=== PATIENT | male | born 1955 | race African-American/Black ===

== ENCOUNTER 2019-05-13 12:21 | Emergency (ER) | payer MEDICARE, MEDICAID ==
[~2019-05-13] VITALS: Ht 170.2 cm; Wt 85.0 kg
[~2019-05-13 12:21] MED LIST: No home medications
[2019-05-13] MEDS ORDERED: LEVETIRACETAM 1000MG/100ML 100 ML IV ONE (12:30)
[2019-05-13 12:52] LABS: CHLORIDE 105 mEq/L (98-107)
[2019-05-13 12:54] LABS: HEMATOCRIT. 39.6 % (42.0-52.0); HEMOGLOBIN. 12.5 g/dL (14.0-18.0); MEAN CORPUSCULAR HEMOGLOBIN 30.2 pg (28.0-32.0); MEAN CORPUSCULAR VOLUME 95.9 fL (80.0-94.0); MEAN PLATELET VOLUME 10.5 fl (7.4-10.4); PLATELET 202 x1000/uL (130-400); RED BLOOD CELL COUNT 4.12 mill/uL (4.7-6.1); RED CELL DISTRIBUTION WIDTH 14.8 % (11.6-14.6)
[2019-05-13 12:56] LABS: ETHANOL BLOOD < 10 mg/dL
[2019-05-13 14:09] LABS: PLATELET ESTIMATE NORMAL
[2019-05-13 14:50] VITALS: BP 111/61
== END 2019-05-13 14:59 | disposition home or self-care (01) ==
LOC: ER 12:21
DX: G40.909 Epilepsy, unspecified, not intractable, without status epilepticus (principal); R41.82 Altered mental status, unspecified; J44.9 Chronic obstructive pulmonary disease, unspecified; I10 Essential (primary) hypertension; F10.20 Alcohol dependence, uncomplicated; F12.10 Cannabis abuse, uncomplicated; F14.10 Cocaine abuse, uncomplicated; Y90.9 Presence of alcohol in blood, level not specified
CPT/HCPCS: 36415; 80053; 80320; 85025; 96365; 99283; J1953; G0480

== ENCOUNTER 2019-06-09 04:42 | Inpatient (IN) | payer MEDICARE, MEDICAID ==
[~2019-06-09] VITALS: Ht 177.8 cm; Wt 73.9 kg
[2019-06-09] MEDS ORDERED: ALBUTEROL (0.083%) 2.5MG/3ML NEB HHN STA (05:18)
[2019-06-09] MEDS ORDERED: METHYLPREDNISOLONE SOD SUCC 125 MG/2 ML VIAL IV STA (05:18)
[2019-06-09] MEDS ORDERED: IPRATROPIUM BROMIDE (0.02%) 0.5MG/2.5ML NEB HHN STA (05:18)
[2019-06-09 05:23] LABS: BASOPHILS % 0.4 % (0.0-2.0); EOSINOPHILS % 0.3 % (0.0-5.0); HEMATOCRIT. 32.7 % (42.0-52.0); HEMOGLOBIN. 10.8 g/dL (14.0-18.0); LYMPHOCYTES % 12.8 % (20.0-50.0); MEAN CORPUSCULAR HEMOGLOBIN 31.2 pg (28.0-32.0); MEAN CORPUSCULAR VOLUME 94.5 fL (80.0-94.0); MEAN PLATELET VOLUME 9.7 fl (7.4-10.4); MONOCYTES % 12.5 % (2.0-8.0); PLATELET 157 x1000/uL (130-400); RED BLOOD CELL COUNT 3.46 mill/uL (4.7-6.1); RED CELL DISTRIBUTION WIDTH 14.3 % (11.6-14.6)
[2019-06-09 05:37] LABS: CHLORIDE 111 mEq/L (98-107)
[2019-06-09] MEDS ORDERED: ASPIRIN 81MG TABLET PO ONE (06:15)
[2019-06-09] MEDS ORDERED: FUROSEMIDE 40MG/4ML VIAL IVP ONE (06:15)
[2019-06-09 08:00] VITALS: BP 141/81
[2019-06-09 08:25] VITALS: BP 141/81
[2019-06-09] MEDS ORDERED: ONDANSETRON HCL 4MG/2ML INJ IV PRN (08:45)
[2019-06-09] MEDS ORDERED: NA PHOS,M-B/NA PHOS,DI-BA ENEMA 118ML PR PRN (08:45)
[2019-06-09] MEDS ORDERED: CLONIDINE 0.1MG TABLET PO PRN (08:45)
[2019-06-09] MEDS ORDERED: ACETAMINOPHEN 325MG TABLET PO PRN (08:45)
[2019-06-09] MEDS ORDERED: IPRATROPIUM/ALBUTEROL 0.5-3(2.5)MG/3ML NEB INH PRN (08:45)
[2019-06-09] MEDS ORDERED: ACETAMINOPHEN 650MG SUPP PR PRN (08:45)
[2019-06-09] MEDS ORDERED: MAGNESIUM/ALUMINUM HYDROXIDE/SIMETHICONE 30ML UDC PO PRN (08:45)
[2019-06-09] MEDS ORDERED: DOCUSATE SODIUM 100MG CAPSULE PO PRN (08:45)
[2019-06-09] MEDS ORDERED: ACETAMINOPHEN 650MG/20.3ML UDC GT PRN (08:45)
[2019-06-09] MEDS: HYDROCODONE/ACETAMINOPHEN 5/325MG TABLET PO PRN ×2 (09:58→17:30)
[2019-06-09] MEDS: ENOXAPARIN 40MG/0.4ML SYR SUBCUT SCH (09:58)
[2019-06-09] MEDS: DIPHENHYDRAMINE 50MG/ML VIAL IV PRN ×2 (10:41→21:49)
[2019-06-09 12:00] VITALS: BP 113/80
[2019-06-09 12:03] LABS: CLARITY URINE CLEAR (CLEAR); COLOR URINE YELLOW (YELLOW); KETONES URINE NEGATIVE (NEGATIVE); LEUKOCYTE ESTERASE URINE NEGATIVE (NEGATIVE); NITRITE URINE NEGATIVE (NEGATIVE); OCCULT BLOOD URINE NEGATIVE (NEGATIVE); PH URINE 5.5 (4.5-8.0); PROTEIN URINE 2+ (NEGATIVE); SPECIFIC GRAVITY URINE 1.008 (1.005-1.030); UROBILINOGEN URINE 0.2 E.U./dL (0.2-1.0)
[2019-06-09 12:26] LABS: *AMPHETAMINES SCREEN URINE NEGATIVE (NEGATIVE); *BARBITURATES SCREEN URINE NEGATIVE (NEGATIVE); *BENZODIAZEPINES SCREEN URINE NEGATIVE (NEGATIVE); *COCAINE SCREEN URINE PRESUMTIVE POSITIVE (NEGATIVE); METHADONE URINE SCREEN NEGATIVE (NEGATIVE)
[2019-06-09 12:27] LABS: CANNABINOID URINE SCREEN NEGATIVE (NEGATIVE); OPIATES URINE SCREEN NEGATIVE (NEGATIVE); PHENCYCLIDINE URINE SCREEN NEGATIVE (NEGATIVE)
[2019-06-09] MEDS ORDERED: QUET50TA21 PO (14:00)
[2019-06-09] MEDS ORDERED: PRED-276 PO (14:02)
[2019-06-09] MEDS ORDERED: ALBU4TAB6 MT (14:06)
[2019-06-09] MEDS ORDERED: ALBU18HF2 IH (14:06)
[2019-06-09] MEDS ORDERED: BUDE6HFA INH (14:06)
[2019-06-09] MEDS: SODIUM CHLORIDE 0.9% INJ 3ML FLUSH IVF SCH ×2 (14:25→21:48)
[2019-06-09 16:00] VITALS: BP 164/86
[2019-06-09 16:37] LABS: CREATINE KINASE MB FRACTION 5.7 ng/mL (0.5-3.6)
[2019-06-09] MEDS: FUROSEMIDE 40MG/4ML VIAL IV SCH (17:30)
[2019-06-09] MEDS: NICOTINE 14MG PATCH TD SCH (17:31)
[2019-06-09 20:00] VITALS: BP 131/74
[2019-06-10] VITALS: BP 147/81
[2019-06-10 04:00] VITALS: BP 135/93
[2019-06-10] MEDS: FUROSEMIDE 40MG/4ML VIAL IV SCH ×2 (05:13→16:08)
[2019-06-10] MEDS: SODIUM CHLORIDE 0.9% INJ 3ML FLUSH IVF SCH ×3 (05:13→21:02)
[2019-06-10 06:10] LABS: BASOPHILS % 0.3 % (0.0-2.0); HEMATOCRIT. 30.7 % (42.0-52.0); LYMPHOCYTES % 8.5 % (20.0-50.0); MEAN CORPUSCULAR HEMOGLOBIN 30.6 pg (28.0-32.0); MEAN PLATELET VOLUME 10.6 fl (7.4-10.4); MONOCYTES % 11.4 % (2.0-8.0); NEUTROPHILS % 79.8 % (40.0-76.0); PLATELET 147 x1000/uL (130-400); RED BLOOD CELL COUNT 3.26 mill/uL (4.7-6.1); RED CELL DISTRIBUTION WIDTH 13.7 % (11.6-14.6)
[2019-06-10 06:23] LABS: CHLORIDE 106 mEq/L (98-107)
[2019-06-10 06:34] LABS: HDL CHOLESTEROL 85 mg/dL (40-59); LDL CHOLESTEROL 54 mg/dL (5-100)
[2019-06-10 08:00] VITALS: BP 142/80
[2019-06-10] MEDS: HYDROCODONE/ACETAMINOPHEN 5/325MG TABLET PO PRN ×3 (08:03→21:08)
[2019-06-10] MEDS: NICOTINE 14MG PATCH TD SCH (08:04)
[2019-06-10] MEDS: ENOXAPARIN 40MG/0.4ML SYR SUBCUT SCH (08:04)
[2019-06-10 12:00] VITALS: BP 120/71
[2019-06-10 16:00] VITALS: BP 135/85
[2019-06-10 20:00] VITALS: BP 114/67
[2019-06-10] MEDS: DIPHENHYDRAMINE 50MG/ML VIAL IV PRN (22:25)
[2019-06-11] VITALS: BP 123/74
[2019-06-11] MEDS: ALBUTEROL (0.083%) 2.5MG/3ML NEB HHN SCH ×3 (00:48→14:32)
[2019-06-11 04:26] VITALS: BP 124/75
[2019-06-11] MEDS: SODIUM CHLORIDE 0.9% INJ 3ML FLUSH IVF SCH (05:11)
[2019-06-11] MEDS: HYDROCODONE/ACETAMINOPHEN 5/325MG TABLET PO PRN ×3 (05:52→14:53)
[2019-06-11] MEDS: FUROSEMIDE 40MG/4ML VIAL IV SCH (07:06)
[2019-06-11] MEDS ORDERED: FURO-151 MT (07:07)
[2019-06-11] MEDS: NICOTINE 14MG PATCH TD SCH (10:16)
[2019-06-11] MEDS: ENOXAPARIN 40MG/0.4ML SYR SUBCUT SCH (10:17)
[2019-06-11 15:10] VITALS: BP 126/67
== END 2019-06-11 17:44 | disposition home or self-care (01) | DRG 292 ==
LOC: ER 04:42 → 6WST 06:02 → ENRESERV 07:41
PROVIDERS: ADMIT Family Medicine; ATTEND Family Medicine
DX: I11.0 Hypertensive heart disease with heart failure (principal); E44.0 Moderate protein-calorie malnutrition; J44.9 Chronic obstructive pulmonary disease, unspecified; G40.909 Epilepsy, unspecified, not intractable, without status epilepticus; F10.10 Alcohol abuse, uncomplicated; I50.23 Acute on chronic systolic (congestive) heart failure; F17.200 Nicotine dependence, unspecified, uncomplicated; F41.9 Anxiety disorder, unspecified; F32.9 Major depressive disorder, single episode, unspecified; F14.90 Cocaine use, unspecified, uncomplicated; I27.20 Pulmonary hypertension, unspecified; I42.9 Cardiomyopathy, unspecified; Z91.19 Patient's noncompliance with other medical treatment and regimen; Z68.23 Body mass index [BMI] 23.0-23.9, adult; Z79.899 Other long term (current) drug therapy
CPT/HCPCS: 36415; 71045; 80061; 80305; 81003; 82550; 82553; 83880; 84484; 93005; 93306; 94640; 97161; 97166; 99285; J1200; J1650; J1940; J2405; J2930; J7611

== ENCOUNTER 2019-08-10 02:59 | Inpatient (IN) | payer MEDICARE, MEDICAID ==
[~2019-08-10] VITALS: Ht 167.6 cm; Wt 94.3 kg
[~2019-08-10 02:59] MED LIST changes: +BUDE6HFA INH; +FURO-151 MT; -No home medications; +PRED-276 PO; +QUET50TA21 PO
[2019-08-10 05:56] LABS: BASOPHILS % 0.8 % (0.0-2.0); HEMATOCRIT. 40.1 % (42.0-52.0); HEMOGLOBIN. 12.6 g/dL (14.0-18.0); LYMPHOCYTES % 12.2 % (20.0-50.0); MEAN CORPUSCULAR HEMOGLOBIN 29.1 pg (28.0-32.0); MEAN CORPUSCULAR VOLUME 92.5 fL (80.0-94.0); MEAN PLATELET VOLUME 9.6 fl (7.4-10.4); MONOCYTES % 8.9 % (2.0-8.0); NEUTROPHILS % 78.1 % (40.0-76.0); PLATELET 227 x1000/uL (130-400); RED BLOOD CELL COUNT 4.33 mill/uL (4.7-6.1); RED CELL DISTRIBUTION WIDTH 15.1 % (11.6-14.6)
[2019-08-10 06:03] LABS: CHLORIDE 110 mEq/L (98-107)
[2019-08-10] MEDS ORDERED: MORPHINE SULFATE 4 MG/ML CPJ (NOT FOR IM USE) IV ONE (06:45)
[2019-08-10] MEDS ORDERED: FUROSEMIDE 40MG/4ML VIAL IVP ONE (06:45)
[2019-08-10 11:00] VITALS: BP 140/91
[2019-08-10 12:00] VITALS: BP 144/76
[2019-08-10 16:00] VITALS: BP 161/92
[2019-08-10] MEDS: MORPHINE SULFATE 2 MG/ML CPJ (NOT FOR IM USE) IV PRN ×2 (16:56→21:29)
[2019-08-10 20:00] VITALS: BP 150/65
[2019-08-10] MEDS ORDERED: CLONIDINE 0.1MG TABLET PO PRN (20:45)
[2019-08-10] MEDS ORDERED: ACETAMINOPHEN 325MG TABLET PO PRN (20:45)
[2019-08-10] MEDS ORDERED: GUAIFENESIN 200MG/10ML SUGAR FREE UDC PO PRN (20:45)
[2019-08-10] MEDS ORDERED: ONDANSETRON HCL 4MG/2ML INJ IV PRN (20:45)
[2019-08-10] MEDS ORDERED: MAGNESIUM/ALUMINUM HYDROXIDE/SIMETHICONE 30ML UDC PO PRN (20:45)
[2019-08-10] MEDS ORDERED: DIPHENHYDRAMINE 50MG/ML VIAL IV PRN (20:45)
[2019-08-10] MEDS ORDERED: LORAZEPAM 0.5MG TABLET PO PRN (20:45)
[2019-08-10] MEDS: FUROSEMIDE 40MG/4ML VIAL IVP SCH (21:28)
[2019-08-10] MEDS: SODIUM CHLORIDE 0.9% INJ 3ML FLUSH IVF SCH (22:00)
[2019-08-11] VITALS: BP 145/75
[2019-08-11 04:00] VITALS: BP 155/90
[2019-08-11] MEDS: MORPHINE SULFATE 2 MG/ML CPJ (NOT FOR IM USE) IV PRN ×2 (04:15→21:23)
[2019-08-11] MEDS: SODIUM CHLORIDE 0.9% INJ 3ML FLUSH IVF SCH ×3 (05:41→21:23)
[2019-08-11 06:58] LABS: CHLORIDE 105 mEq/L (98-107)
[2019-08-11 07:12] LABS: PHOSPHORUS 3.9 mg/dL (2.5-4.9)
[2019-08-11 07:51] VITALS: BP 134/76
[2019-08-11] MEDS: IPRATROPIUM/ALBUTEROL 0.5-3(2.5)MG/3ML NEB HHN PRN ×3 (08:25→20:24)
[2019-08-11] MEDS: BUDESONIDE 0.5MG/2ML NEB HHN SCH ×2 (08:26→20:23)
[2019-08-11] MEDS: QUETIAPINE FUMARATE 50MG TABLET PO SCH (09:38)
[2019-08-11] MEDS: FUROSEMIDE 40MG/4ML VIAL IVP SCH ×2 (09:38→21:23)
[2019-08-11 11:55] VITALS: BP 121/77
[2019-08-11] MEDS ORDERED: MAGNESIUM 4 G PREMIX 100 ML IV SCH (14:00)
[2019-08-11 16:00] VITALS: BP 135/76
[2019-08-11 20:00] VITALS: BP 106/70
[2019-08-12] VITALS: BP 138/68
[2019-08-12 04:00] VITALS: BP 130/77
[2019-08-12] MEDS: SODIUM CHLORIDE 0.9% INJ 3ML FLUSH IVF SCH ×3 (06:19→20:40)
[2019-08-12 07:07] LABS: CHLORIDE 105 mEq/L (98-107)
[2019-08-12 08:00] VITALS: BP 136/58
[2019-08-12] MEDS: QUETIAPINE FUMARATE 50MG TABLET PO SCH (08:44)
[2019-08-12] MEDS: FUROSEMIDE 40MG/4ML VIAL IVP SCH ×2 (08:44→20:39)
[2019-08-12] MEDS: MORPHINE SULFATE 2 MG/ML CPJ (NOT FOR IM USE) IV PRN ×3 (08:45→20:39)
[2019-08-12] MEDS: BUDESONIDE 0.5MG/2ML NEB HHN SCH ×2 (11:06→20:48)
[2019-08-12] MEDS: IPRATROPIUM/ALBUTEROL 0.5-3(2.5)MG/3ML NEB HHN SCH ×3 (11:07→20:48)
[2019-08-12 12:00] VITALS: BP 130/61
[2019-08-12 12:18] LABS: PROTHROMBIN TIME 10.3 sec (9.6-11.0)
[2019-08-12 13:58] LABS: *COCAINE SCREEN URINE PRESUMTIVE POSITIVE (NEGATIVE); CANNABINOID URINE SCREEN NEGATIVE (NEGATIVE); METHADONE URINE SCREEN NEGATIVE (NEGATIVE); OPIATES URINE SCREEN PRESUMTIVE POSITIVE (NEGATIVE)
[2019-08-12 13:59] LABS: PHENCYCLIDINE URINE SCREEN NEGATIVE (NEGATIVE)
[2019-08-12 14:00] LABS: *AMPHETAMINES SCREEN URINE NEGATIVE (NEGATIVE); *BARBITURATES SCREEN URINE NEGATIVE (NEGATIVE)
[2019-08-12 14:03] LABS: *BENZODIAZEPINES SCREEN URINE NEGATIVE (NEGATIVE)
[2019-08-12] MEDS ORDERED: PROMETHAZINE/DEXTROMETHORPHAN 6.25-15MG/5ML BOTTLE 120ML PO PRN (14:45)
[2019-08-12 16:00] VITALS: BP 119/82
[2019-08-12 20:00] VITALS: BP 134/81
[2019-08-12] MEDS: GUAIFENESIN 600MG ER TABLET PO SCH (20:40)
[2019-08-13] VITALS: BP 120/68
[2019-08-13] MEDS: IPRATROPIUM/ALBUTEROL 0.5-3(2.5)MG/3ML NEB HHN SCH ×4 (01:19→21:20)
[2019-08-13 04:00] VITALS: BP 127/85
[2019-08-13] MEDS: SODIUM CHLORIDE 0.9% INJ 3ML FLUSH IVF SCH ×3 (06:06→21:50)
[2019-08-13] MEDS: MORPHINE SULFATE 2 MG/ML CPJ (NOT FOR IM USE) IV PRN ×3 (06:07→21:05)
[2019-08-13 08:00] VITALS: BP 138/78
[2019-08-13] MEDS: FUROSEMIDE 40MG/4ML VIAL IVP SCH ×2 (08:22→21:49)
[2019-08-13] MEDS: GUAIFENESIN 600MG ER TABLET PO SCH ×2 (08:22→21:50)
[2019-08-13] MEDS: QUETIAPINE FUMARATE 50MG TABLET PO SCH (08:22)
[2019-08-13] MEDS ORDERED: SODIUM BICARBONATE 4% (2.4MEQ) 5ML VIAL IV ONE (10:05)
[2019-08-13] MEDS: BUDESONIDE 0.5MG/2ML NEB HHN SCH ×2 (10:26→21:21)
[2019-08-13 12:00] VITALS: BP 119/70
[2019-08-13 15:31] VITALS: BP 118/70
[2019-08-13 20:00] VITALS: BP 127/66
[2019-08-14] VITALS: BP 142/82
[2019-08-14] MEDS: IPRATROPIUM/ALBUTEROL 0.5-3(2.5)MG/3ML NEB HHN SCH ×4 (01:27→20:31)
[2019-08-14 04:00] VITALS: BP 129/72
[2019-08-14] MEDS: MORPHINE SULFATE 2 MG/ML CPJ (NOT FOR IM USE) IV PRN ×3 (04:11→21:41)
[2019-08-14] MEDS: SODIUM CHLORIDE 0.9% INJ 3ML FLUSH IVF SCH ×3 (05:18→21:30)
[2019-08-14] MEDS: GUAIFENESIN 600MG ER TABLET PO SCH ×2 (10:23→21:40)
[2019-08-14] MEDS: QUETIAPINE FUMARATE 50MG TABLET PO SCH (10:23)
[2019-08-14] MEDS: FUROSEMIDE 40MG/4ML VIAL IVP SCH (10:23)
[2019-08-14 12:00] VITALS: BP 99/56
[2019-08-14 20:00] VITALS: BP 122/69
[2019-08-15] VITALS: BP 129/67
[2019-08-15] MEDS: IPRATROPIUM/ALBUTEROL 0.5-3(2.5)MG/3ML NEB HHN SCH ×2 (02:22→09:33)
[2019-08-15 04:00] VITALS: BP 126/75
[2019-08-15] MEDS: MORPHINE SULFATE 2 MG/ML CPJ (NOT FOR IM USE) IV PRN (05:27)
[2019-08-15] MEDS: SODIUM CHLORIDE 0.9% INJ 3ML FLUSH IVF SCH (05:30)
[2019-08-15 08:00] VITALS: BP 124/82
[2019-08-15 08:43] VITALS: BP 124/82
[2019-08-15] MEDS ORDERED: FUROSEMIDE 40MG TABLET PO SCH (09:00)
[2019-08-15] MEDS: QUETIAPINE FUMARATE 50MG TABLET PO SCH (09:39)
[2019-08-15] MEDS: GUAIFENESIN 600MG ER TABLET PO SCH (09:39)
[2019-08-15] MEDS ORDERED: MORPHINE SULFATE 4 MG/ML CPJ (NOT FOR IM USE) IV PRN (11:00)
[2019-08-15 11:07] VITALS: BP 124/82
== END 2019-08-15 14:35 | disposition home or self-care (01) | DRG 291 ==
LOC: ER 02:59 → 8WST 07:40 → ENRESERV 09:51
PROVIDERS: ADMIT Internal Medicine; ATTEND Internal Medicine
PROC: 0W993ZZ Drainage of Right Pleural Cavity, Percutaneous Approach (ICD-10-PCS; principal; 2019-08-13)
DX: I50.23 Acute on chronic systolic (congestive) heart failure (principal); J96.00 Acute respiratory failure, unspecified whether with hypoxia or hypercapnia; I42.9 Cardiomyopathy, unspecified; E44.0 Moderate protein-calorie malnutrition; J91.8 Pleural effusion in other conditions classified elsewhere; E83.42 Hypomagnesemia; B19.20 Unspecified viral hepatitis C without hepatic coma; I27.29 Other secondary pulmonary hypertension; J44.9 Chronic obstructive pulmonary disease, unspecified; F14.10 Cocaine abuse, uncomplicated; F17.200 Nicotine dependence, unspecified, uncomplicated; G89.29 Other chronic pain; Z91.14 Patient's other noncompliance with medication regimen; Z79.899 Other long term (current) drug therapy; Z68.33 Body mass index [BMI] 33.0-33.9, adult
CPT/HCPCS: 32555; 36415; 71045; 76604; 80048; 80305; 82040; 83615; 83735; 83880; 84100; 84484; 88108; 88312; 93005; 94640; 96374; 99285; C1893; J1940; J2270; J3475; J3490; J7620; J7626

== ENCOUNTER 2019-10-28 04:04 | Inpatient (IN) | payer MEDICARE, MEDICAID ==
[~2019-10-28] VITALS: Ht 177.8 cm; Wt 81.2 kg
[2019-10-28] MEDS ORDERED: ONDANSETRON HCL 4MG/2ML INJ IV STA (04:12)
[2019-10-28] MEDS ORDERED: NITROGLYCERIN OINT 1GM/INCH UDPKT TD ONE (04:15)
[2019-10-28] MEDS ORDERED: FUROSEMIDE 40MG/4ML VIAL IV ONE (04:15)
[2019-10-28 04:36] LABS: BASOPHILS % 0.2 % (0.0-2.0); HEMATOCRIT. 33.7 % (42.0-52.0); HEMOGLOBIN. 10.5 g/dL (14.0-18.0); LYMPHOCYTES % 7.4 % (20.0-50.0); MEAN CORPUSCULAR HEMOGLOBIN 28.5 pg (28.0-32.0); MEAN PLATELET VOLUME 9.3 fl (7.4-10.4); MONOCYTES % 9.2 % (2.0-8.0); NEUTROPHILS % 83.2 % (40.0-76.0); PLATELET 212 x1000/uL (130-400); RED CELL DISTRIBUTION WIDTH 16.5 % (11.6-14.6)
[2019-10-28 04:45] LABS: CHLORIDE 107 mEq/L (98-107)
[2019-10-28 04:49] LABS: BG BILEVEL POS AIRWAY PRESSURE 18/5; BG CARBOXYHEMOGLOBIN 0.9 % (0.5-1.5); BG FRACTION INSPIRED OXYGEN 100; BG METHEMOGLOBIN 0.1 % (0.0-1.5); BG PCO2 48.3 mmHg (35.0-45.0); BG PH 7.349 (7.350-7.450); BG PO2 214.6 mmHg (75.0-100.0); BG SAMPLE SITE RIGHT RADIAL; BG TOTAL HEMOGLOBIN 10.7 g/dL (12.0-18.0); BG VENT MODE MASK - BIPAP; BG VENT RATE 14 set
[2019-10-28] MEDS ORDERED: SODIUM CHLORIDE 0.9% 1,000 ML IV ONE (04:59)
[2019-10-28] MEDS ORDERED: AZITHROMYCIN 500 MG in DEXT 5% WATER 250 ML IV ONE (05:00)
[2019-10-28] MEDS ORDERED: CEFTRIAXONE 1 G PREMIX 50 ML IV ONE (05:00)
[2019-10-28] MEDS ORDERED: MORPHINE SULFATE 2 MG/ML CPJ (NOT FOR IM USE) IV ONE (07:00)
[2019-10-28] MEDS ORDERED: CEFTRIAXONE 1 G PREMIX 50 ML IV SCH (09:30)
[2019-10-28] MEDS ORDERED: CLONIDINE 0.1MG TABLET PO PRN (09:30)
[2019-10-28] MEDS ORDERED: MAGNESIUM/ALUMINUM HYDROXIDE/SIMETHICONE 30ML UDC PO PRN (09:30)
[2019-10-28] MEDS ORDERED: ONDANSETRON HCL 4MG/2ML INJ IV PRN (09:30)
[2019-10-28] MEDS ORDERED: AZITHROMYCIN 500 MG in DEXT 5% WATER 250 ML IV SCH (09:30)
[2019-10-28] MEDS ORDERED: GUAIFENESIN 200MG/10ML SUGAR FREE UDC PO PRN (09:30)
[2019-10-28] MEDS ORDERED: DOCUSATE SODIUM 100MG CAPSULE PO PRN (09:30)
[2019-10-28] MEDS ORDERED: NITROGLYCERIN 0.4MG TABLET SL SL PRN (09:30)
[2019-10-28] MEDS ORDERED: IPRATROPIUM/ALBUTEROL 0.5-3(2.5)MG/3ML NEB NEB PRN (09:30)
[2019-10-28] MEDS: GUAIFENESIN/DM 600MG/30MG ER TAB 12HR PO SCH ×2 (10:24→23:10)
[2019-10-28] MEDS: ENOXAPARIN 40MG/0.4ML SYR SUBCUT SCH (10:26)
[2019-10-28] MEDS: ACETAMINOPHEN 325MG TABLET PO PRN ×2 (11:27→17:42)
[2019-10-28] MEDS: LORAZEPAM 0.5MG TABLET PO PRN ×2 (11:27→17:42)
[2019-10-28] MEDS: LISINOPRIL 20MG TABLET PO SCH ×2 (11:30→23:11)
[2019-10-28] MEDS ORDERED: METHYLPREDNISOLONE SOD SUCC 125 MG/2 ML VIAL IV SCH (14:00)
[2019-10-28 15:01] LABS: CREATINE KINASE MB FRACTION 4.8 ng/mL (0.5-3.6)
[2019-10-28 15:03] LABS: INR 1.1; PROTHROMBIN TIME 10.9 sec (9.6-11.0)
[2019-10-28 20:00] LABS: TOTAL IRON BINDING CAPACITY 302 ug/dL (250-450)
[2019-10-28 20:18] LABS: FOLIC ACID (FOLATE) SERUM >20 ng/mL ng/mL (>5.38)
[2019-10-28 20:30] LABS: VITAMIN B12 SERUM 682 pg/mL (211-911)
[2019-10-28 20:43] VITALS: BP 151/54
[2019-10-28 20:48] VITALS: BP 151/54
[2019-10-28 22:00] VITALS: BP 113/70
[2019-10-28 23:04] VITALS: BP 117/80
[2019-10-28] MEDS: SPIRONOLACTONE 25MG TABLET PO SCH (23:09)
[2019-10-28] MEDS: FAMOTIDINE 20MG TABLET PO SCH (23:09)
[2019-10-28] MEDS: FUROSEMIDE 40MG/4ML VIAL IVP SCH (23:10)
[2019-10-28 23:32] VITALS: BP 142/80
[2019-10-29] VITALS (14 sets, daily range): BP systolic 106–175; BP diastolic 49–94
[2019-10-29] MEDS: IPRATROPIUM/ALBUTEROL 0.5-3(2.5)MG/3ML NEB HHN SCH ×6 (01:15→20:36)
[2019-10-29] MEDS: CEFTRIAXONE 1 G PREMIX 50 ML IV SCH (02:33)
[2019-10-29] MEDS: TRAMADOL 50MG TABLET PO PRN ×2 (02:40→14:12)
[2019-10-29] MEDS: AZITHROMYCIN 500 MG in DEXT 5% WATER 250 ML IV SCH (03:15)
[2019-10-29 07:01] LABS: CREATINE KINASE MB FRACTION 4.7 ng/mL (0.5-3.6)
[2019-10-29] MEDS: FUROSEMIDE 40MG/4ML VIAL IVP SCH ×3 (07:15→20:26)
[2019-10-29] MEDS: FAMOTIDINE 20MG TABLET PO SCH ×2 (08:23→20:27)
[2019-10-29] MEDS: SPIRONOLACTONE 25MG TABLET PO SCH ×2 (08:23→20:27)
[2019-10-29] MEDS: ENOXAPARIN 40MG/0.4ML SYR SUBCUT SCH (08:24)
[2019-10-29] MEDS: GUAIFENESIN/DM 600MG/30MG ER TAB 12HR PO SCH ×2 (08:24→20:27)
[2019-10-29] MEDS: LISINOPRIL 20MG TABLET PO SCH ×2 (08:24→20:27)
[2019-10-29] MEDS ORDERED: AZITHROMYCIN 500 MG in DEXT 5% WATER 250 ML IV SCH (09:00)
[2019-10-29 12:44] LABS: CLARITY URINE CLEAR (CLEAR); COLOR URINE YELLOW (YELLOW); KETONES URINE NEGATIVE (NEGATIVE); LEUKOCYTE ESTERASE URINE NEGATIVE (NEGATIVE); NITRITE URINE NEGATIVE (NEGATIVE); OCCULT BLOOD URINE NEGATIVE (NEGATIVE); PH URINE 5.5 (4.5-8.0); PROTEIN URINE 1+ (NEGATIVE); SPECIFIC GRAVITY URINE 1.018 (1.005-1.030); UROBILINOGEN URINE 0.2 E.U./dL (0.2-1.0)
[2019-10-29 13:21] LABS: *AMPHETAMINES SCREEN URINE NEGATIVE (NEGATIVE); *BARBITURATES SCREEN URINE NEGATIVE (NEGATIVE); *BENZODIAZEPINES SCREEN URINE NEGATIVE (NEGATIVE); *COCAINE SCREEN URINE PRESUMTIVE POSITIVE (NEGATIVE)
[2019-10-29 13:23] LABS: METHADONE URINE SCREEN NEGATIVE (NEGATIVE); OPIATES URINE SCREEN PRESUMTIVE POSITIVE (NEGATIVE)
[2019-10-29 13:24] LABS: CANNABINOID URINE SCREEN NEGATIVE (NEGATIVE); PHENCYCLIDINE URINE SCREEN NEGATIVE (NEGATIVE)
[2019-10-29 15:47] LABS: *AMPHETAMINES SCREEN URINE NEGATIVE (NEGATIVE)
[2019-10-29 15:48] LABS: *BARBITURATES SCREEN URINE NEGATIVE (NEGATIVE); *BENZODIAZEPINES SCREEN URINE NEGATIVE (NEGATIVE); *COCAINE SCREEN URINE PRESUMTIVE POSITIVE (NEGATIVE); METHADONE URINE SCREEN NEGATIVE (NEGATIVE); OPIATES URINE SCREEN PRESUMTIVE POSITIVE (NEGATIVE); PHENCYCLIDINE URINE SCREEN NEGATIVE (NEGATIVE)
[2019-10-29 15:49] LABS: CANNABINOID URINE SCREEN NEGATIVE (NEGATIVE)
[2019-10-30] VITALS (10 sets, daily range): BP systolic 119–140; BP diastolic 41–90
[2019-10-30] MEDS: IPRATROPIUM/ALBUTEROL 0.5-3(2.5)MG/3ML NEB HHN SCH ×6 (00:43→23:41)
[2019-10-30] MEDS: CEFTRIAXONE 1 G PREMIX 50 ML IV SCH (01:00)
[2019-10-30] MEDS: AZITHROMYCIN 500 MG in DEXT 5% WATER 250 ML IV SCH (02:00)
[2019-10-30] MEDS: FUROSEMIDE 40MG/4ML VIAL IVP SCH ×2 (07:15→15:48)
[2019-10-30] MEDS: LORAZEPAM 0.5MG TABLET PO PRN (07:22)
[2019-10-30] MEDS: GUAIFENESIN/DM 600MG/30MG ER TAB 12HR PO SCH ×2 (09:57→21:23)
[2019-10-30] MEDS: FAMOTIDINE 20MG TABLET PO SCH ×2 (09:57→21:23)
[2019-10-30] MEDS: LISINOPRIL 20MG TABLET PO SCH ×2 (09:57→21:24)
[2019-10-30] MEDS: SPIRONOLACTONE 25MG TABLET PO SCH ×2 (09:57→21:24)
[2019-10-30 11:37] LABS: T4 FREE 1.13 ng/dL (0.76-1.46)
[2019-10-30 15:43] LABS: CREATINE KINASE MB FRACTION 4.1 ng/mL (0.5-3.6)
[2019-10-30] MEDS: ACETAMINOPHEN 325MG TABLET PO PRN (17:48)
[2019-10-30 23:46] LABS: CREATINE KINASE MB FRACTION 4.1 ng/mL (0.5-3.6)
[2019-10-31] VITALS: BP 126/82
[2019-10-31] MEDS: CEFTRIAXONE 1 G PREMIX 50 ML IV SCH (00:32)
[2019-10-31] MEDS: AZITHROMYCIN 500 MG in DEXT 5% WATER 250 ML IV SCH (00:33)
[2019-10-31 04:00] VITALS: BP 138/79
[2019-10-31] MEDS: IPRATROPIUM/ALBUTEROL 0.5-3(2.5)MG/3ML NEB HHN SCH ×6 (05:10→23:59)
[2019-10-31] MEDS: FUROSEMIDE 40MG/4ML VIAL IVP SCH ×2 (05:44→17:58)
[2019-10-31 08:00] VITALS: BP 133/85
[2019-10-31] MEDS: SPIRONOLACTONE 25MG TABLET PO SCH ×2 (09:50→21:11)
[2019-10-31] MEDS: LISINOPRIL 20MG TABLET PO SCH ×2 (09:51→21:11)
[2019-10-31] MEDS: FAMOTIDINE 20MG TABLET PO SCH ×2 (09:51→21:11)
[2019-10-31] MEDS: GUAIFENESIN/DM 600MG/30MG ER TAB 12HR PO SCH ×2 (09:51→21:08)
[2019-10-31 12:00] VITALS: BP 151/86
[2019-10-31 16:00] VITALS: BP 130/76
[2019-10-31] MEDS: ACETAMINOPHEN 325MG TABLET PO PRN ×2 (17:57→21:49)
[2019-10-31] MEDS: AZITHROMYCIN 500 MG TABLET PO SCH (17:57)
[2019-10-31 20:00] VITALS: BP 112/76
[2019-11-01] VITALS: BP 143/71
[2019-11-01] MEDS: CEFTRIAXONE 1 G PREMIX 50 ML IV SCH (02:23)
[2019-11-01 04:00] VITALS: BP 141/75
[2019-11-01] MEDS: IPRATROPIUM/ALBUTEROL 0.5-3(2.5)MG/3ML NEB HHN SCH ×3 (04:00→12:53)
[2019-11-01] MEDS: FUROSEMIDE 40MG/4ML VIAL IVP SCH (06:53)
[2019-11-01 08:00] VITALS: BP 131/76
[2019-11-01] MEDS: GUAIFENESIN/DM 600MG/30MG ER TAB 12HR PO SCH (08:42)
[2019-11-01] MEDS: FAMOTIDINE 20MG TABLET PO SCH (08:43)
[2019-11-01] MEDS: SPIRONOLACTONE 25MG TABLET PO SCH (08:44)
[2019-11-01] MEDS: LISINOPRIL 20MG TABLET PO SCH (08:45)
[2019-11-01] MEDS: AZITHROMYCIN 500 MG TABLET PO SCH (08:45)
[2019-11-01] MEDS ORDERED: TRAMADOL 50MG TABLET PO PRN (10:30)
[2019-11-01 12:00] VITALS: BP 125/75
[2019-11-01 13:16] VITALS: BP 125/75
== END 2019-11-01 16:53 | DRG 871 ==
LOC: ER 04:04 → 3WST 05:21 → EDBEDREQTM 05:25 → EDBEDREQ 05:25 → EDBEDREQSVC 08:47 → SUPCPDRO 09:23 → ENRESERV 18:26 → 6EST 10-30 10:55
PROVIDERS: ADMIT Internal Medicine; ATTEND Internal Medicine
PROC: 5A09357 Assistance with Respiratory Ventilation, Less than 24 Consecutive Hours, Continuous Positive Airway Pressure (ICD-10-PCS; 2019-10-28)
PROC: 5A09357 Assistance with Respiratory Ventilation, Less than 24 Consecutive Hours, Continuous Positive Airway Pressure (ICD-10-PCS; 2019-10-29)
PROC: 0W993ZZ Drainage of Right Pleural Cavity, Percutaneous Approach (ICD-10-PCS; principal; 2019-10-30)
DX: A41.9 Sepsis, unspecified organism (principal); J18.9 Pneumonia, unspecified organism; J96.01 Acute respiratory failure with hypoxia; J44.0 Chronic obstructive pulmonary disease with (acute) lower respiratory infection; E44.0 Moderate protein-calorie malnutrition; E87.2 Acidosis; I42.9 Cardiomyopathy, unspecified; I11.0 Hypertensive heart disease with heart failure; F17.210 Nicotine dependence, cigarettes, uncomplicated; R74.0 Nonspecific elevation of levels of transaminase and lactic acid dehydrogenase [LDH]; F14.10 Cocaine abuse, uncomplicated; E83.51 Hypocalcemia; D63.8 Anemia in other chronic diseases classified elsewhere; E78.5 Hyperlipidemia, unspecified; Z60.2 Problems related to living alone; Z76.5 Malingerer [conscious simulation]; I50.9 Heart failure, unspecified; Z68.25 Body mass index [BMI] 25.0-25.9, adult; Z79.899 Other long term (current) drug therapy
CPT/HCPCS: 32555; 36415; 36600; 71045; 71250; 78580; 80053; 80061; 80305; 81003; 82040; 82375; 82550; 82553; 82607; 82746; 82805; 82962; 83036; 83540; 83550; 83605; 83615; 83880; 84145; 84439; 84443; 84484; 85025; 85379; 88108; 88312; 93005; 93306; 93970; 94640; 94660; 96365; 97116; 97162; 99291; J0456; J0696; J1650; J1940; J2270; J2405; J7030; J7040; J7060; J7620

== ENCOUNTER 2019-11-11 17:47 | Inpatient (IN) | payer MEDICARE, MEDICAID ==
[~2019-11-11] VITALS: Ht 177.8 cm; Wt 68.0 kg
[2019-11-11] MEDS ORDERED: SPIR25TA PO (18:02)
[2019-11-11] MEDS ORDERED: FURO-151 PO (18:02)
[2019-11-11] MEDS ORDERED: LISI-604 PO (18:02)
[2019-11-11] MEDS ORDERED: FAMO20TA8 PO (18:02)
[2019-11-11] MEDS ORDERED: CLON-457 PO (18:02)
[2019-11-11] MEDS ORDERED: SODIUM CHLORIDE 0.9% 500 ML IV ONE ×2 (18:45→22:00)
[2019-11-11] MEDS ORDERED: ASPIRIN 325MG TABLET PO ONE (18:45)
[2019-11-11 19:07] LABS: CHLORIDE 104 mEq/L (98-107); HEMATOCRIT. 32.1 % (42.0-52.0); HEMOGLOBIN. 10.2 g/dL (14.0-18.0); MEAN CORPUSCULAR HEMOGLOBIN 28.6 pg (28.0-32.0); MEAN CORPUSCULAR VOLUME 89.8 fL (80.0-94.0); MEAN PLATELET VOLUME 9.8 fl (7.4-10.4); PLATELET 259 x1000/uL (130-400); RED BLOOD CELL COUNT 3.57 mill/uL (4.7-6.1); RED CELL DISTRIBUTION WIDTH 15.8 % (11.6-14.6)
[2019-11-11 19:10] LABS: ETHANOL BLOOD < 10 mg/dL
[2019-11-11 19:37] LABS: PLATELET ESTIMATE NORMAL
[2019-11-11] MEDS ORDERED: HALOPERIDOL LACTATE 5MG/ML VIAL IM ONE ×2 (19:45→21:00)
[2019-11-11] MEDS ORDERED: SODIUM CHLORIDE 0.9% 1,000 ML IV ONE (20:13)
[2019-11-11] MEDS ORDERED: LORAZEPAM 2MG/ML CPJ IV ONE (21:00)
[2019-11-11] MEDS ORDERED: DIPHENHYDRAMINE 50MG/ML VIAL IM ONE (21:00)
[2019-11-11] MEDS ORDERED: CLONIDINE 0.1MG TABLET PO PRN (21:45)
[2019-11-11] MEDS ORDERED: IPRATROPIUM/ALBUTEROL 0.5-3(2.5)MG/3ML NEB NEB PRN (21:45)
[2019-11-11] MEDS ORDERED: DOCUSATE SODIUM 100MG CAPSULE PO PRN (21:45)
[2019-11-11] MEDS ORDERED: ACETAMINOPHEN 325MG TABLET PO PRN (21:45)
[2019-11-11] MEDS ORDERED: ONDANSETRON HCL 4MG/2ML INJ IV PRN (21:45)
[2019-11-11] MEDS ORDERED: PIPERACILLIN/TAZ 3.375G PREMIX 50 ML IV SCH (21:45)
[2019-11-11] MEDS ORDERED: MAGNESIUM/ALUMINUM HYDROXIDE/SIMETHICONE 30ML UDC PO PRN (21:45)
[2019-11-11] MEDS ORDERED: GUAIFENESIN 200MG/10ML SUGAR FREE UDC PO PRN (21:45)
[2019-11-11] MEDS ORDERED: NITROGLYCERIN 0.4MG TABLET SL SL PRN (21:45)
[2019-11-11] MEDS ORDERED: TRAMADOL 50MG TABLET PO PRN (21:56)
[2019-11-11] MEDS ORDERED: KETOROLAC 15MG/ML VIAL IV PRN (21:57)
[2019-11-11] MEDS ORDERED: ZOLPIDEM TARTRATE 5MG TABLET PO PRN (22:00)
[2019-11-12] VITALS (11 sets, daily range): BP systolic 87–136; BP diastolic 37–86
[2019-11-12] MEDS ORDERED: SODIUM CHLORIDE 0.9% 1,000 ML IV ONE
[2019-11-12] MEDS ORDERED: SODIUM POLYSTYRENE SULFONATE 15 G/60 ML BOT PO NR ×2 (01:00→17:00)
[2019-11-12] MEDS ORDERED: PIPERACILLIN/TAZOBACTAM 3.375 G in DEXT 5% WATER 100 ML IV SCH (01:00)
[2019-11-12] MEDS ORDERED: ALBUMIN HUMAN 25GM/100ML (25%) IV NR (01:00)
[2019-11-12] MEDS ORDERED: VANCOMYCIN 1250MG in DEXTROSE 5% WATER 250ML IV NR (01:30)
[2019-11-12] MEDS: ENOXAPARIN 40MG/0.4ML SYR SUBCUT SCH (09:02)
[2019-11-12] MEDS: FAMOTIDINE 20MG TABLET PO SCH (09:03)
[2019-11-12] MEDS: ASPIRIN 325MG EC TABLET PO SCH (09:03)
[2019-11-12 09:32] LABS: CREATINE KINASE MB FRACTION 7.6 ng/mL (0.5-3.6)
[2019-11-12] MEDS ORDERED: VANCOMYCIN 1 G PREMIX 200 ML IV SCH (12:00)
[2019-11-12 14:32] LABS: CHLORIDE 108 mEq/L (98-107)
[2019-11-12] MEDS ORDERED: SODIUM CHLORIDE 0.9% 1,000 ML IV SCH (16:00)
[2019-11-12] MEDS ORDERED: SODIUM BICARBONATE 8.4% 1 MEQ/ML 50ML SYR IV NR ×3 (16:30→23:45)
[2019-11-12] MEDS: CITRIC ACID/SODIUM CITRATE SOLN 30ML UDC PO SCH (16:59)
[2019-11-13] VITALS: BP 148/79
[2019-11-13] MEDS ORDERED: SODIUM POLYSTYRENE SULFONATE 15 G/60 ML BOT PO NR (01:00)
[2019-11-13 04:00] VITALS: BP 155/76
[2019-11-13] MEDS: FAMOTIDINE 20MG TABLET PO SCH ×3 (05:04→20:12)
[2019-11-13 06:00] VITALS: BP 137/55
[2019-11-13 07:12] LABS: HEMATOCRIT. 33.9 % (42.0-52.0); HEMOGLOBIN. 10.7 g/dL (14.0-18.0); MEAN CORPUSCULAR HEMOGLOBIN 28.6 pg (28.0-32.0); MEAN CORPUSCULAR VOLUME 90.6 fL (80.0-94.0); MEAN PLATELET VOLUME 9.3 fl (7.4-10.4); PLATELET 256 x1000/uL (130-400); RED BLOOD CELL COUNT 3.75 mill/uL (4.7-6.1); RED CELL DISTRIBUTION WIDTH 15.7 % (11.6-14.6)
[2019-11-13 08:00] VITALS: BP 130/66
[2019-11-13 08:29] LABS: CHLORIDE 110 mEq/L (98-107)
[2019-11-13] MEDS: ASPIRIN 325MG EC TABLET PO SCH (08:32)
[2019-11-13 08:41] LABS: PHOSPHORUS 4.1 mg/dL (2.5-4.9)
[2019-11-13] MEDS: ENOXAPARIN 40MG/0.4ML SYR SUBCUT SCH (08:41)
[2019-11-13 08:42] LABS: HDL CHOLESTEROL 69 mg/dL (40-59); LDL CHOLESTEROL 61 mg/dL (5-100)
[2019-11-13] MEDS: CITRIC ACID/SODIUM CITRATE SOLN 30ML UDC PO SCH ×3 (09:02→16:59)
[2019-11-13 10:00] VITALS: BP 126/72
[2019-11-13] MEDS: FUROSEMIDE 20MG/2ML VIAL IVP SCH ×2 (11:08→18:23)
[2019-11-13] MEDS: HALOPERIDOL LACTATE 5MG/ML VIAL IM PRN (11:09)
[2019-11-13 14:12] LABS: PLATELET ESTIMATE NORMAL
[2019-11-13 20:00] VITALS: BP 144/78
[2019-11-13] MEDS: AMLODIPINE 2.5MG TABLET PO SCH (20:13)
[2019-11-13] MEDS: CARVEDILOL 3.125 MG TABLET PO SCH (20:13)
[2019-11-14 04:00] VITALS: BP 110/92
[2019-11-14 06:00] VITALS: BP 136/62
[2019-11-14 06:57] LABS: HEMATOCRIT. 36.4 % (42.0-52.0); HEMOGLOBIN. 11.5 g/dL (14.0-18.0); MEAN CORPUSCULAR HEMOGLOBIN 28.2 pg (28.0-32.0); MEAN CORPUSCULAR VOLUME 89.6 fL (80.0-94.0); MEAN PLATELET VOLUME 9.6 fl (7.4-10.4); PLATELET 263 x1000/uL (130-400); RED BLOOD CELL COUNT 4.06 mill/uL (4.7-6.1); RED CELL DISTRIBUTION WIDTH 15.8 % (11.6-14.6)
[2019-11-14] MEDS: FUROSEMIDE 20MG/2ML VIAL IVP SCH (07:15)
[2019-11-14 08:00] VITALS: BP 154/81
[2019-11-14 08:31] LABS: CHLORIDE 107 mEq/L (98-107)
[2019-11-14] MEDS: CITRIC ACID/SODIUM CITRATE SOLN 30ML UDC PO SCH (08:39)
[2019-11-14] MEDS: ENOXAPARIN 40MG/0.4ML SYR SUBCUT SCH (08:39)
[2019-11-14] MEDS: CARVEDILOL 3.125 MG TABLET PO SCH (08:40)
[2019-11-14] MEDS: ASPIRIN 325MG EC TABLET PO SCH (08:40)
[2019-11-14] MEDS: AMLODIPINE 2.5MG TABLET PO SCH (08:40)
[2019-11-14] MEDS: FAMOTIDINE 20MG TABLET PO SCH (08:40)
[2019-11-14 08:41] LABS: PHOSPHORUS 4.1 mg/dL (2.5-4.9)
[2019-11-14] MEDS: HALOPERIDOL LACTATE 5MG/ML VIAL IM PRN (08:41)
[2019-11-14 10:00] VITALS: BP 131/78
[2019-11-14 10:03] LABS: PLATELET ESTIMATE NORMAL
[2019-11-14] MEDS ORDERED: FUROSEMIDE 40MG TABLET PO SCH (10:30)
[2019-11-14] MEDS ORDERED: LOSARTAN POTASSIUM 25 MG TABLET PO SCH (10:30)
[2019-11-14 12:00] VITALS: BP 144/90
[2019-11-14 12:37] VITALS: BP 131/78
== END 2019-11-14 13:00 | DRG 313 ==
LOC: ER 17:47 → ENRESERV 23:09 → 5EST 23:48
PROVIDERS: ADMIT Internal Medicine; ATTEND Internal Medicine
DX: R07.89 Other chest pain (principal); N17.0 Acute kidney failure with tubular necrosis; E43 Unspecified severe protein-calorie malnutrition; E87.1 Hypo-osmolality and hyponatremia; I50.40 Unspecified combined systolic (congestive) and diastolic (congestive) heart failure; I42.9 Cardiomyopathy, unspecified; I95.2 Hypotension due to drugs; E83.51 Hypocalcemia; E87.5 Hyperkalemia; D63.8 Anemia in other chronic diseases classified elsewhere; I11.0 Hypertensive heart disease with heart failure; Z68.21 Body mass index [BMI] 21.0-21.9, adult; Z79.899 Other long term (current) drug therapy; F14.10 Cocaine abuse, uncomplicated; J44.9 Chronic obstructive pulmonary disease, unspecified; Z87.891 Personal history of nicotine dependence; T50.2X5A Adverse effect of carbonic-anhydrase inhibitors, benzothiadiazides and other diuretics, initial encounter; Y92.89 Other specified places as the place of occurrence of the external cause; Z79.82 Long term (current) use of aspirin
CPT/HCPCS: 36415; 71045; 80048; 80053; 80061; 80320; 82550; 82553; 83036; 83605; 83735; 83880; 84100; 84132; 84145; 84484; 85025; 93005; 96361; 96372; 96374; 99285; J1200; J1630; J1650; J1940; J2060; J2543; J3370; J3490; J7030; J7040; J7060; P9047; G0480

== ENCOUNTER 2020-02-11 02:58 | Inpatient (IN) | payer BC, MEDICAID ==
[~2020-02-11] VITALS: Ht 162.6 cm; Wt 81.2 kg
[2020-02-11] MEDS: IPRATROPIUM/ALBUTEROL 0.5-3(2.5)MG/3ML NEB NEB SCH (02:10)
[~2020-02-11 02:58] MED LIST changes: +CLON-457 PO; +FAMO20TA8 PO; +FURO-151 PO; +LISI-604 PO; +SPIR25TA PO
[2020-02-11] MEDS ORDERED: ALBUTEROL (0.083%) 2.5MG/3ML NEB HHN STA (04:42)
[2020-02-11] MEDS ORDERED: IPRATROPIUM BROMIDE (0.02%) 0.5MG/2.5ML NEB HHN STA (04:42)
[2020-02-11] MEDS ORDERED: METHYLPREDNISOLONE SOD SUCC 125 MG/2 ML VIAL IV STA (04:42)
[2020-02-11 06:44] LABS: BASOPHILS % 0.2 % (0.0-2.0); EOSINOPHILS % 0.1 % (0.0-5.0); HEMATOCRIT. 30.5 % (42.0-52.0); HEMOGLOBIN. 9.8 g/dL (14.0-18.0); LYMPHOCYTES % 9.6 % (20.0-50.0); MEAN CORPUSCULAR HEMOGLOBIN 27.8 pg (28.0-32.0); MEAN CORPUSCULAR VOLUME 86.9 fL (80.0-94.0); MEAN PLATELET VOLUME 10.6 fl (7.4-10.4); MONOCYTES % 8.7 % (2.0-8.0); NEUTROPHILS % 81.4 % (40.0-76.0); PLATELET 175 x1000/uL (130-400); RED BLOOD CELL COUNT 3.51 mill/uL (4.7-6.1); RED CELL DISTRIBUTION WIDTH 17.4 % (11.6-14.6)
[2020-02-11 07:28] LABS: *AMPHETAMINES SCREEN URINE NEGATIVE (NEGATIVE); *BARBITURATES SCREEN URINE NEGATIVE (NEGATIVE); *BENZODIAZEPINES SCREEN URINE NEGATIVE (NEGATIVE); *COCAINE SCREEN URINE PRESUMTIVE POSITIVE (NEGATIVE); METHADONE URINE SCREEN NEGATIVE (NEGATIVE); OPIATES URINE SCREEN NEGATIVE (NEGATIVE)
[2020-02-11 07:29] LABS: CANNABINOID URINE SCREEN NEGATIVE (NEGATIVE); PHENCYCLIDINE URINE SCREEN NEGATIVE (NEGATIVE)
[2020-02-11 08:11] LABS: BG BASE EXCESS 6.3 mmol/L (-2.0-2.0); BG CARBOXYHEMOGLOBIN 3.3 % (0.5-1.5); BG DEOXYHEMOGLOBIN 13.4 % (0.0-5.0); BG FRACTION INSPIRED OXYGEN 21; BG HCO3 ACT 30.5 mmol/L (22.0-26.0); BG METHEMOGLOBIN 0.3 % (0.0-1.5); BG OXYGEN SATURATION 86.1 % (92.0-98.5); BG PCO2 42.5 mmHg (35.0-45.0); BG PH 7.474 (7.350-7.450); BG SAMPLE SITE RIGHT RADIAL; BG TOTAL HEMOGLOBIN 9.7 g/dL (12.0-18.0); BG VENT MODE ROOM AIR
[2020-02-11 09:46] LABS: CHLORIDE 100 mEq/L (98-107)
[2020-02-11] MEDS ORDERED: ONDANSETRON HCL 4MG/2ML INJ IV PRN (10:15)
[2020-02-11] MEDS ORDERED: DOCUSATE SODIUM 100MG CAPSULE PO PRN (10:15)
[2020-02-11] MEDS ORDERED: DEXTROSE 50% WATER 50ML SYRINGE IV PRN (10:15)
[2020-02-11] MEDS ORDERED: ACETAMINOPHEN 325MG TABLET PO PRN (10:15)
[2020-02-11] MEDS ORDERED: CLONIDINE 0.1MG TABLET PO PRN (10:15)
[2020-02-11] MEDS ORDERED: IPRATROPIUM/ALBUTEROL 0.5-3(2.5)MG/3ML NEB NEB PRN (10:15)
[2020-02-11] MEDS ORDERED: MAGNESIUM/ALUMINUM HYDROXIDE/SIMETHICONE 30ML UDC PO PRN (10:15)
[2020-02-11] MEDS ORDERED: ACETAMINOPHEN 650MG SUPP PR PRN (10:15)
[2020-02-11] MEDS ORDERED: GUAIFENESIN 200MG/10ML SUGAR FREE UDC PO PRN (10:15)
[2020-02-11 10:32] LABS: BG BASE EXCESS 3.5 mmol/L (-2.0-2.0); BG CARBOXYHEMOGLOBIN 2.6 % (0.5-1.5); BG DEOXYHEMOGLOBIN 7.2 % (0.0-5.0); BG HCO3 ACT 27.5 mmol/L (22.0-26.0); BG METHEMOGLOBIN 0.3 % (0.0-1.5); BG OXYGEN SATURATION 92.6 % (92.0-98.5); BG OXYHEMOGLOBIN 89.9 % (94.0-97.0); BG PCO2 39.6 mmHg (35.0-45.0); BG PO2 65.9 mmHg (75.0-100.0); BG SAMPLE SITE RIGHT RADIAL; BG TOTAL HEMOGLOBIN 9.7 g/dL (12.0-18.0); BG VENT MODE ROOM AIR
[2020-02-11] MEDS ORDERED: PIPERACILLIN/TAZOBACTAM 3.375 G in DEXT 5% WATER 100 ML IV SCH (11:30)
[2020-02-11] MEDS: FUROSEMIDE 40MG/4ML VIAL IVP SCH ×2 (12:10→18:14)
[2020-02-11] MEDS: BLOOD SUGAR DIAGNOSTIC STRIP TEST SCH ×4 (12:17→21:00)
[2020-02-11] MEDS: INSULIN LISPRO 100 UNITS/ML SUBCUT SCH ×4 (12:22→21:00)
[2020-02-11 12:35] LABS: PROTHROMBIN TIME 10.4 sec (9.6-11.0)
[2020-02-11] MEDS: HYDROCODONE/ACETAMINOPHEN 5/325MG TABLET PO PRN ×2 (12:39→20:41)
[2020-02-11 12:57] LABS: CLARITY URINE CLEAR (CLEAR); COLOR URINE YELLOW (YELLOW); KETONES URINE NEGATIVE (NEGATIVE); LEUKOCYTE ESTERASE URINE 1+ (NEGATIVE); NITRITE URINE NEGATIVE (NEGATIVE); OCCULT BLOOD URINE NEGATIVE (NEGATIVE); PROTEIN URINE 1+ (NEGATIVE); SPECIFIC GRAVITY URINE 1.018 (1.005-1.030)
[2020-02-11 16:53] VITALS: BP 127/74
[2020-02-11] MEDS ORDERED: INFLUENZA VIRUS VACCINE(AFLURIA) 0.5ML SYR IM ONE (17:30)
[2020-02-11] MEDS ORDERED: PNEUMOCOCCAL 23-VAL P-SAC VAC 0.5 ML IM ONE (17:30)
[2020-02-11 18:00] VITALS: BP 123/66
[2020-02-11 20:00] VITALS: BP 138/72
[2020-02-11] MEDS: PIPERACILLIN/TAZOBACTAM 3.375 G in DEXT 5% WATER 100 ML IV SCH (20:00)
[2020-02-11 20:46] LABS: CREATINE KINASE MB FRACTION 7.2 ng/mL (0.5-3.6)
[2020-02-12] MEDS: HYDROCODONE/ACETAMINOPHEN 5/325MG TABLET PO PRN ×3 (00:36→19:41)
[2020-02-12] MEDS: PIPERACILLIN/TAZOBACTAM 3.375 G in DEXT 5% WATER 100 ML IV SCH ×5 (06:00→17:56)
[2020-02-12] MEDS: FUROSEMIDE 40MG/4ML VIAL IVP SCH (07:15)
[2020-02-12] MEDS: BLOOD SUGAR DIAGNOSTIC STRIP TEST SCH ×4 (07:20→21:00)
[2020-02-12] MEDS: INSULIN LISPRO 100 UNITS/ML SUBCUT SCH ×4 (07:50→21:00)
[2020-02-12 08:00] VITALS: BP 143/90
[2020-02-12] MEDS: IPRATROPIUM/ALBUTEROL 0.5-3(2.5)MG/3ML NEB NEB SCH ×3 (08:19→20:28)
[2020-02-12 08:27] LABS: BASOPHILS % 0.1 % (0.0-2.0); EOSINOPHILS % 0.3 % (0.0-5.0); HEMATOCRIT. 27.5 % (42.0-52.0); HEMOGLOBIN. 8.8 g/dL (14.0-18.0); LYMPHOCYTES % 7.6 % (20.0-50.0); MEAN CORPUSCULAR VOLUME 87.8 fL (80.0-94.0); MONOCYTES % 7.4 % (2.0-8.0); NEUTROPHILS % 84.6 % (40.0-76.0); PLATELET 155 x1000/uL (130-400); RED BLOOD CELL COUNT 3.14 mill/uL (4.7-6.1); RED CELL DISTRIBUTION WIDTH 17.9 % (11.6-14.6)
[2020-02-12] MEDS ORDERED: LIDOCAINE HCL 1% 20ML VIAL (Pyxis) INJ ONE (09:47)
[2020-02-12 09:58] LABS: CHLORIDE 101 mEq/L (98-107)
[2020-02-12 10:08] LABS: LDL CHOLESTEROL 51 mg/dL (5-100); T4 FREE 1.19 ng/dL (0.76-1.46)
[2020-02-12 10:09] LABS: CREATINE KINASE 70 IU/L (39-308); CREATINE KINASE MB FRACTION 7.8 ng/mL (0.5-3.6); HDL CHOLESTEROL 79 mg/dL (40-59)
[2020-02-12 12:00] VITALS: BP 118/67
[2020-02-12] MEDS: LORAZEPAM 0.5MG TABLET PO PRN (15:59)
[2020-02-12 16:12] VITALS: BP 125/65
[2020-02-12] MEDS ORDERED: METHYLPREDNISOLONE SOD SUCC 40 MG/ML VIAL IV SCH (17:00)
[2020-02-12] MEDS ORDERED: PREDNISONE 20MG TABLET PO NR (18:00)
[2020-02-12] MEDS: FUROSEMIDE 40MG TABLET PO SCH (18:21)
[2020-02-12 20:00] VITALS: BP 125/69
[2020-02-13 00:43] VITALS: BP 125/69
[2020-02-13] MEDS: IPRATROPIUM/ALBUTEROL 0.5-3(2.5)MG/3ML NEB NEB SCH ×4 (01:30→20:40)
[2020-02-13] MEDS: HYDROCODONE/ACETAMINOPHEN 5/325MG TABLET PO PRN ×2 (03:28→17:06)
[2020-02-13 04:00] VITALS: BP 133/70
[2020-02-13] MEDS: BLOOD SUGAR DIAGNOSTIC STRIP TEST SCH ×4 (06:23→21:00)
[2020-02-13] MEDS: INSULIN LISPRO 100 UNITS/ML SUBCUT SCH ×4 (07:50→21:00)
[2020-02-13] MEDS: FUROSEMIDE 40MG TABLET PO SCH ×2 (08:39→17:49)
[2020-02-13] MEDS: LORAZEPAM 0.5MG TABLET PO PRN (09:45)
[2020-02-13 10:02] VITALS: BP 140/93
[2020-02-13] MEDS: PIPERACILLIN/TAZOBACTAM 3.375 G in DEXT 5% WATER 100 ML IV SCH ×5 (12:00→21:51)
[2020-02-13 12:49] VITALS: BP 123/76
[2020-02-13] MEDS ORDERED: ALBU90AE INH (12:52)
[2020-02-13] MEDS ORDERED: PRED10TA PO (12:52)
[2020-02-13 20:00] VITALS: BP 122/63
[2020-02-14] VITALS: BP 113/74
[2020-02-14] MEDS: IPRATROPIUM/ALBUTEROL 0.5-3(2.5)MG/3ML NEB NEB SCH ×2 (01:36→22:34)
[2020-02-14 04:00] VITALS: BP 129/75
[2020-02-14] MEDS: PIPERACILLIN/TAZOBACTAM 3.375 G in DEXT 5% WATER 100 ML IV SCH ×4 (05:21→22:12)
[2020-02-14] MEDS: BLOOD SUGAR DIAGNOSTIC STRIP TEST SCH ×4 (05:21→21:00)
[2020-02-14] MEDS: HYDROCODONE/ACETAMINOPHEN 5/325MG TABLET PO PRN (05:21)
[2020-02-14] MEDS: INSULIN LISPRO 100 UNITS/ML SUBCUT SCH ×4 (07:50→21:00)
[2020-02-14 08:00] VITALS: BP 133/77
[2020-02-14] MEDS: FUROSEMIDE 40MG TABLET PO SCH ×2 (08:28→18:04)
[2020-02-14 12:00] VITALS: BP 129/92
[2020-02-14] MEDS: LORAZEPAM 0.5MG TABLET PO PRN ×2 (14:40→22:12)
[2020-02-14 16:57] VITALS: BP 129/88
[2020-02-14 20:00] VITALS: BP 127/86
[2020-02-15] VITALS: BP 131/82
[2020-02-15] MEDS: IPRATROPIUM/ALBUTEROL 0.5-3(2.5)MG/3ML NEB NEB SCH ×3 (01:17→09:57)
[2020-02-15] MEDS: HYDROCODONE/ACETAMINOPHEN 5/325MG TABLET PO PRN ×3 (01:34→12:11)
[2020-02-15] MEDS: PIPERACILLIN/TAZOBACTAM 3.375 G in DEXT 5% WATER 100 ML IV SCH ×2 (02:25→10:45)
[2020-02-15 04:00] VITALS: BP 138/76
[2020-02-15] MEDS: LORAZEPAM 0.5MG TABLET PO PRN ×2 (07:26→12:10)
[2020-02-15] MEDS: BLOOD SUGAR DIAGNOSTIC STRIP TEST SCH ×2 (07:28→12:29)
[2020-02-15 08:00] VITALS: BP 138/71
[2020-02-15] MEDS: INSULIN LISPRO 100 UNITS/ML SUBCUT SCH ×2 (09:00→12:29)
[2020-02-15 11:54] VITALS: BP 138/71
[2020-02-15 12:11] VITALS: BP 138/71
== END 2020-02-15 14:45 | disposition home or self-care (01) | DRG 918 ==
LOC: ER 02:58 → 6WST 05:51 → EDBEDREQTM 05:55 → EDBEDREQ 05:55 → SUPCPDRO 09:55 → ENRESERV 15:44
PROVIDERS: ADMIT Internal Medicine; ATTEND Internal Medicine
DX: T40.5X1A Poisoning by cocaine, accidental (unintentional), initial encounter (principal); I42.9 Cardiomyopathy, unspecified; J91.0 Malignant pleural effusion; J68.0 Bronchitis and pneumonitis due to chemicals, gases, fumes and vapors; R65.10 Systemic inflammatory response syndrome (SIRS) of non-infectious origin without acute organ dysfunction; E44.0 Moderate protein-calorie malnutrition; J96.11 Chronic respiratory failure with hypoxia; I50.32 Chronic diastolic (congestive) heart failure; F17.210 Nicotine dependence, cigarettes, uncomplicated; Z60.2 Problems related to living alone; F19.10 Other psychoactive substance abuse, uncomplicated; E11.65 Type 2 diabetes mellitus with hyperglycemia; D64.9 Anemia, unspecified; Z91.19 Patient's noncompliance with other medical treatment and regimen; Z79.51 Long term (current) use of inhaled steroids; Z79.899 Other long term (current) drug therapy; Y92.89 Other specified places as the place of occurrence of the external cause
CPT/HCPCS: 36415; 36600; 71045; 76604; 80053; 80061; 80305; 81003; 82375; 82550; 82553; 82805; 82962; 83605; 83880; 84439; 84443; 84484; 85025; 93005; 93970; 94640; 96365; 97161; 99291; J1815; J1940; J2543; J2930; J3490; J7060; J7512

== ENCOUNTER 2020-02-24 02:07 | Inpatient (IN) | payer BC, MEDICAID ==
[~2020-02-24] VITALS: Ht 170.2 cm; Wt 71.7 kg
[~2020-02-24 02:07] MED LIST changes: +ALBU90AE INH; -PRED-276 PO; +PRED10TA PO
[2020-02-24] MEDS ORDERED: PIPERACILLIN/TAZ 3.375G PREMIX 50 ML IV ONE (03:15)
[2020-02-24] MEDS ORDERED: VANCOMYCIN 1 G PREMIX 200 ML IV ONE (03:15)
[2020-02-24] MEDS ORDERED: AZITHROMYCIN 500 MG in DEXT 5% WATER 250 ML IV ONE (03:15)
[2020-02-24 04:10] LABS: CHLORIDE 110 mEq/L (98-107)
[2020-02-24 04:19] LABS: CREATINE KINASE 84 IU/L (39-308)
[2020-02-24 04:21] LABS: HEMATOCRIT. 27.8 % (42.0-52.0); HEMOGLOBIN. 8.9 g/dL (14.0-18.0); MEAN CORPUSCULAR HEMOGLOBIN 28.7 pg (28.0-32.0); MEAN CORPUSCULAR VOLUME 89.8 fL (80.0-94.0); PLATELET 265 x1000/uL (130-400); RED CELL DISTRIBUTION WIDTH 18.7 % (11.6-14.6)
[2020-02-24 04:30] LABS: D-DIMER 3.08 mg/L FEU (<0.50); INR 1.1; PROTHROMBIN TIME 11.7 sec (9.6-11.0)
[2020-02-24 05:21] LABS: PLATELET ESTIMATE NORMAL
[2020-02-24] MEDS ORDERED: HALOPERIDOL LACTATE 5MG/ML VIAL IM ONE (06:30)
[2020-02-24 12:10] VITALS: BP 153/89
[2020-02-24 12:15] VITALS: BP 153/89
[2020-02-24] MEDS ORDERED: GUAIFENESIN 200MG/10ML SUGAR FREE UDC PO PRN (14:00)
[2020-02-24] MEDS ORDERED: IPRATROPIUM/ALBUTEROL 0.5-3(2.5)MG/3ML NEB NEB PRN (14:00)
[2020-02-24] MEDS ORDERED: DIPHENHYDRAMINE 50MG/ML VIAL IV PRN (14:00)
[2020-02-24] MEDS ORDERED: DOCUSATE SODIUM 100MG CAPSULE PO PRN (14:00)
[2020-02-24] MEDS ORDERED: ONDANSETRON HCL 4MG/2ML INJ IV PRN (14:00)
[2020-02-24] MEDS ORDERED: NA PHOS,M-B/NA PHOS,DI-BA ENEMA 118ML PR PRN (14:00)
[2020-02-24] MEDS ORDERED: ACETAMINOPHEN 650MG SUPP PR PRN (14:00)
[2020-02-24] MEDS ORDERED: CLONIDINE 0.1MG TABLET PO PRN (14:00)
[2020-02-24] MEDS ORDERED: ACETAMINOPHEN 325MG TABLET PO PRN (14:00)
[2020-02-24] MEDS ORDERED: MAGNESIUM/ALUMINUM HYDROXIDE/SIMETHICONE 30ML UDC PO PRN (14:00)
[2020-02-24 15:00] LABS: BG BASE EXCESS -0.2 mmol/L (-2.0-2.0); BG CARBOXYHEMOGLOBIN 1.8 % (0.5-1.5); BG DEOXYHEMOGLOBIN 7.2 % (0.0-5.0); BG FRACTION INSPIRED OXYGEN 21; BG HCO3 ACT 23.7 mmol/L (22.0-26.0); BG METHEMOGLOBIN 0.3 % (0.0-1.5); BG OXYGEN SATURATION 92.6 % (92.0-98.5); BG OXYHEMOGLOBIN 90.7 % (94.0-97.0); BG PCO2 35.3 mmHg (35.0-45.0); BG PH 7.444 (7.350-7.450); BG PO2 67.7 mmHg (75.0-100.0); BG SAMPLE SITE RIGHT RADIAL; BG TOTAL HEMOGLOBIN 9.9 g/dL (12.0-18.0); BG VENT MODE ROOM AIR
[2020-02-24] MEDS: LORAZEPAM 0.5MG TABLET PO PRN (15:21)
[2020-02-24] MEDS: METHYLPREDNISOLONE SOD SUCC 40 MG/ML VIAL IV SCH (15:22)
[2020-02-24] MEDS: FUROSEMIDE 40MG/4ML VIAL IVP SCH (15:22)
[2020-02-24 15:45] LABS: CLARITY URINE CLEAR (CLEAR); COLOR URINE YELLOW (YELLOW); KETONES URINE NEGATIVE (NEGATIVE); LEUKOCYTE ESTERASE URINE 1+ (NEGATIVE); NITRITE URINE NEGATIVE (NEGATIVE); OCCULT BLOOD URINE NEGATIVE (NEGATIVE); PROTEIN URINE 2+ (NEGATIVE); SPECIFIC GRAVITY URINE 1.024 (1.005-1.030)
[2020-02-24 16:00] VITALS: BP 146/86
[2020-02-24] MEDS ORDERED: PIPERACILLIN/TAZOBACTAM 3.375 G in DEXT 5% WATER 100 ML IV SCH (16:00)
[2020-02-24] MEDS ORDERED: IPRATROPIUM/ALBUTEROL 0.5-3(2.5)MG/3ML NEB NEB SCH (16:00)
[2020-02-24 16:09] LABS: *AMPHETAMINES SCREEN URINE NEGATIVE (NEGATIVE)
[2020-02-24 16:10] LABS: *BARBITURATES SCREEN URINE NEGATIVE (NEGATIVE); *BENZODIAZEPINES SCREEN URINE NEGATIVE (NEGATIVE); *COCAINE SCREEN URINE PRESUMTIVE POSITIVE (NEGATIVE); METHADONE URINE SCREEN NEGATIVE (NEGATIVE); OPIATES URINE SCREEN NEGATIVE (NEGATIVE); PHENCYCLIDINE URINE SCREEN PRESUMTIVE POSITIVE (NEGATIVE)
[2020-02-24 16:11] LABS: CANNABINOID URINE SCREEN NEGATIVE (NEGATIVE)
[2020-02-24] MEDS: PIPERACILLIN/TAZOBACTAM 3.375 G in DEXT 5% WATER 100 ML IV SCH (18:30)
[2020-02-24] MEDS ORDERED: FAMOTIDINE 20MG TABLET PO SCH (21:00)
[2020-02-24] MEDS: ALBUTEROL 6.7GM HFA INHALER ORI SCH (22:20)
[2020-02-25] VITALS: BP 137/83
[2020-02-25] MEDS: PIPERACILLIN/TAZOBACTAM 3.375 G in DEXT 5% WATER 100 ML IV SCH ×2 (00:43→05:59)
[2020-02-25] MEDS: LORAZEPAM 0.5MG TABLET PO PRN ×2 (02:44→10:50)
[2020-02-25] MEDS: ALBUTEROL 6.7GM HFA INHALER ORI SCH ×2 (03:00→08:35)
[2020-02-25 04:00] VITALS: BP 125/76
[2020-02-25 08:00] VITALS: BP 154/89
[2020-02-25] MEDS: METHYLPREDNISOLONE SOD SUCC 40 MG/ML VIAL IV SCH (08:42)
[2020-02-25] MEDS: FUROSEMIDE 40MG/4ML VIAL IVP SCH (08:42)
[2020-02-25] MEDS ORDERED: ASPIRIN 81MG EC TABLET PO SCH (09:00)
== END 2020-02-25 12:00 | disposition left against medical advice (07) | DRG 917 ==
LOC: ER 02:07 → 7EST 04:30 → ENRESERV 11:19 → 7EST 14:37
PROVIDERS: ADMIT Internal Medicine; ATTEND Internal Medicine
DX: T40.5X1A Poisoning by cocaine, accidental (unintentional), initial encounter (principal); J18.9 Pneumonia, unspecified organism; J44.0 Chronic obstructive pulmonary disease with (acute) lower respiratory infection; I42.9 Cardiomyopathy, unspecified; J91.0 Malignant pleural effusion; C34.90 Malignant neoplasm of unspecified part of unspecified bronchus or lung; J44.1 Chronic obstructive pulmonary disease with (acute) exacerbation; D64.9 Anemia, unspecified; E11.9 Type 2 diabetes mellitus without complications; I11.0 Hypertensive heart disease with heart failure; Z53.29 Procedure and treatment not carried out because of patient's decision for other reasons; R74.0 Nonspecific elevation of levels of transaminase and lactic acid dehydrogenase [LDH]; I50.9 Heart failure, unspecified; R06.03 Acute respiratory distress; F16.10 Hallucinogen abuse, uncomplicated; R09.02 Hypoxemia; F14.10 Cocaine abuse, uncomplicated; Z59.0 Homelessness; Z79.51 Long term (current) use of inhaled steroids; Z79.899 Other long term (current) drug therapy; Z91.19 Patient's noncompliance with other medical treatment and regimen; Y92.89 Other specified places as the place of occurrence of the external cause; Z03.818 Encounter for observation for suspected exposure to other biological agents ruled out; Z78.1 Physical restraint status
CPT/HCPCS: 36415; 36600; 71045; 80053; 80305; 80353; 81003; 82375; 82550; 82728; 82805; 83605; 83615; 83880; 83992; 84145; 84484; 85025; 85379; 85384; 87635; 87804; 93005; 99291; J0456; J1630; J1940; J2543; J2920; J3370; J7060